=== PATIENT | male | born 1940 | race Caucasian/White ===

== ENCOUNTER 2018-06-26 19:19 | Emergency (ER) | payer OTHER ==
[~2018-06-26] VITALS: Ht 154.9 cm; Wt 55.8 kg
[2018-06-26 19:23] VITALS: Ht 154.9 cm; Wt 55.8 kg
[2018-06-26] MEDS ORDERED: CEFTRIAXONE 1 GM/50 ML (PMX) 50 ML IVPB STA (19:33)
[2018-06-26] MEDS ORDERED: SODIUM CHLORIDE 0.9% 1L BAG IV* STA (19:33)
[2018-06-26] MEDS ORDERED: CEPH-443 PO (21:11)
[2018-06-26 21:29] VITALS: BP 118/85; PULSE 100; RESP 18
--- NOTE | 2018-06-27 00:19 | ERD ---
ER Documentation Chief Complaint Chief Complaint DYSURIA, RETENTION, HEMATURIA X'S 3 DAYS HPI 78-year-old male presenting with complaints of burning with urination associated with frequency and urgency for the past 3 days. Although the chief complaint states hematuria, when speaking to the patient he denies any hematuria. He lisa es any associated fever, chills, nausea, vomiting, difficulty urinating, diarrhea or constipation. He denies any history of prostate problems. No associated abdominal pain ROS All systems reviewed and are negative except as per history of present illness. Medications Home Meds Active Scripts Cephalexin* (Keflex*) 500 Mg Capsule, 500 MG PO BID for 7 Days, CAP Prov:JARED LANDERS MD 06/26/18 Allergies Allergies: Coded Allergies: No Known Allergy (Unverified , 06/26/18) PMhx/Soc Medical and Surgical Hx: pt denies Medical Hx, pt denies Surgical Hx Hx Alcohol Use: No Hx Substance Use: No Hx Tobacco Use: No Smoking Status: Never smoker FmHx Family History: No diabetes Physical Exam Vitals Vital Signs Date Temp Pulse Resp B/P (MAP) Pulse Ox O2 O2 Flow FiO2 Time Delivery Rate 06/26/18 99.2 100 18 118/85 100 Room Air 21:29 (96) 06/26/18 99.2 92 20 140/86 97 Room Air 21:01 (104) 06/26/18 99.2 99 22 165/60 98 Room Air 19:54 (95) 06/26/18 99.9 92 18 184/70 98 19:23 (108) Physical Exam Const: No acute distress Head: Atraumatic Eyes: Normal Conjunctiva ENT: Normal External Ears, Nose and Mouth. Neck: Full range of motion. No meningismus. Resp: Clear to auscultation bilaterally Cardio: Regular rate and rhythm, no murmurs Abd: Minimal suprapubic tenderness to palpation. Soft, no rebound or guarding, no masses, non distended. Normal bowel sounds Skin: No petechiae or rashes Back: No midline or flank tenderness Ext: No cyanosis, or edema Neur: Awake and alert Psych: Normal Mood and Affect Result Diagram: 06/26/18195406/26/181954 Results 24 hrs Laboratory Tests Test 06/26/18 19:55 06/26/18 20:04 White Blood Count 5.9 10^3/ul Red Blood Count 4.45 10^6/ul Hemoglobin 12.3 g/dl Hematocrit 37.3 % Mean Corpuscular Volume 83.8 fl Mean Corpuscular Hemoglobin 27.6 pg Mean Corpuscular Hemoglobin Concent 33.0 g/dl Red Cell Distribution Width 13.3 % Platelet Count 174 10^3/UL Mean Platelet Volume 10.2 fl Immature Granulocytes % 0.500 % Neutrophils % 69.2 % Segmented Neutrophils % (Manual) 65 % Band Neutrophils % (Manual) 5 % Lymphocytes % 16.8 % Lymphocytes % (Manual) 16 % Monocytes % 13.3 % Monocytes % (Manual) 13 % Eosinophils % 0.0 % Eosinophils % (Manual) 1 % Basophils % 0.2 % Nucleated Red Blood Cells % 0.0 /100WBC Immature Granulocytes # 0.030 10^3/ul Neutrophils # 4.1 10^3/ul Neutrophils # (Manual) 3.8 10^3/ul Band Neutrophils # 0.2 10^3/ul Lymphocytes (Manual) 0.9 10^3/ul Lymphocytes # 1.0 10^3/ul Monocytes # 0.8 10^3/ul Monocytes # (Manual) 0.7 10^3/ul Eosinophils # 0.0 10^3/ul Basophils # 0.0 10^3/ul Nucleated Red Blood Cells # 0.0 10^3/ul Platelet Estimate NORMAL Giant Platelets 1 % Poikilocytosis 1+ Prothrombin Time 14.1 Sec Prothrombin Time Ratio 1.1 INR International Normalized Ratio 1.08 Activated Partial Thromboplast Time 41.5 Sec Urine Color YELLOW Urine Clarity TURBID Urine pH 6.0 Urine Specific [place] 1.013 Urine Ketones NEGATIVE mg/dL Urine Nitrite POSITIVE mg/dL Urine Bilirubin NEGATIVE mg/dL Urine Urobilinogen NEGATIVE mg/dL Urine Leukocyte Esterase 3+ Roselyn/ul Urine Microscopic RBC > 182 /HPF Urine Microscopic WBC > 182 /HPF Urine Bacteria FEW /HPF Urine Hemoglobin 3+ mg/dL Urine Glucose NEGATIVE mg/dL Urine Total Protein 2+ mg/dl Sodium Level 137 mmol/L Potassium Level 4.2 mmol/L Chloride Level 106 mmol/L Carbon Dioxide Level 20 mmol/L Anion Gap 11 Blood Urea Nitrogen 28 mg/dl Creatinine 1.56 mg/dl Est Glomerular Filtrat Rate mL/min mL/min Glucose Level 131 mg/dl Calcium Level 9.2 mg/dl Total Bilirubin 0.7 mg/dl Direct Bilirubin 0.00 mg/dl Indirect Bilirubin 0.7 mg/dl Aspartate Amino Transf (AST/SGOT) 22 IU/L Alanine Aminotransferase (ALT/SGPT) 13 IU/L Alkaline Phosphatase 85 IU/L Total Protein 7.9 g/dl Albumin 4.2 g/dl Globulin 3.70 g/dl Albumin/Globulin Ratio 1.13 POC Venous Lactate 1.1 mmol/L Current Medications Medications Dose Sig/Linda Start Time Status Last (Trade) Ordered Route PRN Stop Time Admin Dose Reason Admin Sodium 1,670 ml BOLUS OVER 2 06/26/18 DC 06/26/18 Chloride HOURS STAT 19:33 19:57 (NS) IV* 06/26/18 19:34 Ceftriaxone 50 ml @ ONCE STAT 06/26/18 DC 06/26/18 Sodium 100 mls/hr IVPB 19:33 20:06 06/26/18 20:02 Procedures/MDM EMERGENT LABS AND DIAGNOSTIC STUDIES: Lab Results above were reviewed and interpreted by me. CBC: no anemia or evidence of infection BMP: Evidence of elevated BUN and creatinine which may be secondary to dehydration versus renal insufficiency. no e/o clinically significant electrolyte abnormality, severe acidosis, alkalosis, diabetic ketoacidosis UA: Findings consistent with infection Lactate within normal limits, no evidence of severe sepsis or septic shock Initial Nursing notes reviewed. Previous Medical Records requested via the Electronic Health Record. EMERGENCY DEPARTMENT COURSE / MEDICAL DECISION MAKING: Patient is presenting with dysuria and symptoms of what seems to be a UTI. Vitals were unremarkable. Patient is afebrile. Lactate was within normal limits without evidence of severe sepsis or septic shock. Urinalysis is consistent with a UTI. I do not suspect acute surgical abdomen. Patient was treated with IV antibiotics here and will be discharged with oral antibiotics. Strict return precautions were discussed. I recommended follow-up with PCP to discuss renal function and get repeat blood tests outpatient as well as a repeat urinalysis once he is done with antibiotics. Return precautions were discussed. Referral to Dr. Aguilar, our urologist was also given to get a workup for p ossible prostate pathology as this would most likely be the cause of his UTI. Patient's blood pressure was elevated (>120/80) but appears stable without evidence of hypertensive emergency or urgency. The patient was counseled about the risks of hypertension and urged to pursue outpatient monitoring and therapy within a week with their primary care physician. Departure Diagnosis: Primary Impression: UTI (urinary tract infection) Urinary tract infection type: acute cystitis Hematuria presence: without hematuria Qualified Codes: N30.00 - Acute cystitis without hematuria Condition: Stable Patient Instructions: Understanding Urinary Tract Infections (UTIs) Referrals: RANJIT AGUILAR MD Additional Instructions: Arvind nabil yoav con [facility] [place] y con el Urologo. Regresa a la stacy de emergencias si arturo sintomas no estan mejorando o estan empeorando en 2 [place]. JARED LANDERS MD Jun 27, 2018 00:19
== END 2018-06-26 21:33 | disposition home or self-care (01) ==
LOC: E/R 19:19
DX: N30.00 Acute cystitis without hematuria (principal)
CPT/HCPCS: 80053; 81001; 83605; 85025; 85610; 85730; 87040; 87086; 96374; J0696; J7030; Z7502

== ENCOUNTER 2018-08-01 12:08 | Emergency (ER) | payer OTHER ==
[~2018-08-01] VITALS: Ht 160 cm; Wt 54.4 kg
[~2018-08-01 12:08] MED LIST: CEPH-443 PO
[2018-08-01 12:14] VITALS: BP 176/73; PULSE 68; RESP 20; Ht 160 cm; Wt 54.4 kg
--- NOTE | 2018-08-01 12:38 | EN ---
Date/Time of Note Date/Time of Note DATE: 08/01/18 TIME: 12:37 ER Progress Note Quick RME note: Medical screening exam was initiated and lab/imaging studies were ordered. Patient will be seen in ED 2 by another provider. HPI: 78-year-old male who presents to the ER for concerns of dysuria, urinary frequency x3 days. Patient does admit to a UTI last month. Patient denies any fevers or chills. Patient denies any hematuria. Physical exam: GENERAL: Well-developed, well-nourished male. Appears in no acute distress. HEAD: Normocephalic, atraumatic. EYES: Pupils are equally reactive bilaterally. EOMs grossly intact. No conjunctival erythema. EXTREMITIES: Equal pulses bilaterally. No peripheral clubbing, cyanosis or edema. No unilateral leg swelling. NEUROLOGIC: Alert and oriented. Moving all four extremities without any d ifficulty. Normal speech. Steady gait. SKIN: Normal color. Warm and dry. No rashes or lesions. Orders placed: UA and urine culture were ordered. BRITTANY MOURA PA-C August 01, 2018 12:38
[2018-08-01] MEDS ORDERED: CIPR500T4 PO (14:40)
[2018-08-01] MEDS ORDERED: CEFTRIAXONE 1 GM INJ IM ONE (15:00)
[2018-08-01] MEDS ORDERED: LIDOCAINE 1% (MPF) 5 ML VIAL INJ ONE (15:00)
--- NOTE | 2018-08-01 15:11 | ERD ---
ER Documentation Chief Complaint Chief Complaint c/o painful urination x4 days HPI 78-year-old male presenting with painful urination x4 days. Patient states that he denies any abdominal pain and has no fever. He has pain with urinating and is having difficulty passing his urine. He tried sticking a Q-tip of his urethra earlier today to remove the urine with no alleviation. Denies other medical problems. Has not taken medications for symptoms. NKDA. Surgical history denies. Social history denies ROS All systems reviewed and are negative except as per history of present illness. Medications Home Meds Active Scripts Ciprofloxacin Hcl* (Ciprofloxacin Hcl*) 500 Mg Tablet, 500 MG PO BID for 10 Days, TAB Prov:LOAN GARCIA PA-C 08/01/18 Cephalexin* (Keflex*) 500 Mg Capsule, 500 MG PO BID for 7 Days, CAP Prov:JARED LANDERS MD 06/26/18 Allergies Allergies: Coded Allergies: No Known Allergy (Unverified , 06/26/18) PMhx/Soc Medical and Surgical Hx: pt denies Medical Hx, pt denies Surgical Hx Hx Alcohol Use: No Hx Substance Use: No Hx Tobacco Use: No Smoking Status: Never smoker FmHx Family History: No diabetes, No coronary disease, No other Physical Exam Vitals Vital Signs Date Temp Pulse Resp B/P (MAP) Pulse Ox O2 O2 Flow FiO2 Time Delivery Rate 08/01/18 97.6 68 20 176/73 99 12:14 (107) Physical Exam GENERAL: The patient is well-appearing, well-nourished, in no acute distress CHEST: Clear to auscultation bilaterally. There are no rales, wheezes or rhonchi. HEART: Regular rate and rhythm. No murmurs, clicks, rubs or gallops.. ABDOMEN:Soft, nontender and nondistended. Good bowel sounds. No rebound or guarding. No gross peritonitis. No gross organomegaly or masses. Results 24 hrs Laboratory Tests Test 08/01/18 14:02 Urine Color YELLOW Urine Clarity TURBID Urine pH 6.0 Urine Specific [place] 1.010 Urine Ketones NEGATIVE mg/dL Urine Nitrite POSITIVE mg/dL Urine Bilirubin NEGATIVE mg/dL Urine Urobilinogen NEGATIVE mg/dL Urine Leukocyte Esterase 3+ Roselyn/ul Urine Microscopic RBC > 182 /HPF Urine Microscopic WBC > 182 /HPF Urine Squamous Epithelial Cells FEW /HPF Urine Renal Epithelial Cells FEW /HPF Urine Bacteria MANY /HPF Urine Hemoglobin 3+ mg/dL Urine Glucose NEGATIVE mg/dL Urine Total Protein 2+ mg/dl Current Medications Medications Dose Sig/Linda Start Time Status Last (Trade) Ordered Route PRN Stop Time Admin Dose Reason Admin Ceftriaxone 1 gm ONCE ONCE 08/01/18 DC 08/01/18 Sodium IM 15:00 14:51 (Rocephin) 08/01/18 15:01 Lidocaine 5 ml ONCE ONCE 08/01/18 DC 08/01/18 (Xylocaine INJ 15:00 14:51 1% (Mpf)) 08/01/18 15:01 Procedures/MDM ER course: Urine collected. Urine shows signs of infection. Urine sent for culture. Rocephin given in ED. DM: 78-year-old male presenting with painful urination x4 days. Patient has significant infection noted on urinalysis. Patient will be treated with oral antibiotics. I have low suspicion for sepsis as patient is nontoxic-appearing. I have low suspicion for other acute abdominal emergency. Patient is discharged with supportive medications and told to follow-up with primary care within 1 to 2 days for close evaluation. Patient is told symptoms change or worsen to return immediately to the ER. All questions answered at discharge Departure Diagnosis: Primary Impression: UTI (urinary tract infection) Condition: Stable Patient Instructions: Understanding Urinary Tract Infections (UTIs) Referrals: LANDON ALCANTAR MD (PCP) Additional Instructions: FOLLOW UP WITH YOUR PRIMARY CARE PHYSICIAN TOMORROW.Return to this facility if you are not improving as expected. LOAN GARCIA PA-C August 01, 2018 15:11
== END 2018-08-01 15:13 | disposition home or self-care (01) ==
LOC: FTE 12:08
DX: N39.0 Urinary tract infection, site not specified (principal)
CPT/HCPCS: 81001; 87086; 96372; J0696; P9612; Z7502; Z7610; A4310